=== PATIENT | male | born 1995 | race Caucasian/White ===

== ENCOUNTER 2021-01-12 15:27 | Emergency (ER) | payer OTHER ==
[~2021-01-12] VITALS: Ht 170.2 cm; Wt 81.6 kg
[2021-01-12 15:33] VITALS: BP 119/62
--- NOTE | 2021-01-12 15:40 | NUR ---
BIB SELF C/O R MIDDLE TOE PAIN "I ACCIDENTALLY HIT THE DOOR WITH FOOT". RATES PAIN 10.PEDAL PULSE PRESENT. WILL CONTINUE TO MONITOR THE PATIENT.
--- NOTE | 2021-01-12 16:15 | NUR ---
Patient discharged to home in stable condition. Written and verbal after care instructions given. Patient verbalizes understanding of instruction. The patient left ER in stable condition.
== END 2021-01-12 16:22 | disposition home or self-care (01) ==
LOC: ER 15:27
DX: S92.531A Displaced fracture of distal phalanx of right lesser toe(s), initial encounter for closed fracture (principal); W22.8XXA Striking against or struck by other objects, initial encounter; Y93.89 Activity, other specified; Y92.89 Other specified places as the place of occurrence of the external cause; Y99.8 Other external cause status
CPT/HCPCS: 73660-TC